=== PATIENT | female | born 1985 | race Caucasian/White ===

== ENCOUNTER 2018-03-09 21:42 | Emergency (ER) | payer MEDICAID ==
[~2018-03-09] VITALS: Ht 144.8 cm; Wt 78.0 kg
[2018-03-09] MEDS ORDERED: KETOROLAC 60MG/2ML VIAL IM STA (22:39)
[2018-03-09 23:02] LABS: CLARITY URINE CLEAR (CLEAR); COLOR URINE YELLOW (YELLOW); KETONES URINE NEGATIVE (NEGATIVE); LEUKOCYTE ESTERASE URINE NEGATIVE (NEGATIVE); NITRITE URINE NEGATIVE (NEGATIVE); OCCULT BLOOD URINE NEGATIVE (NEGATIVE); PH URINE 7.5 (4.5-8.0); PROTEIN URINE NEGATIVE (NEGATIVE); SPECIFIC GRAVITY URINE 1.006 (1.005-1.030); UROBILINOGEN URINE 0.2 E.U./dL (0.2-1.0)
[2018-03-09 23:29] LABS: BASOPHILS % 0.7 % (0.0-2.0); EOSINOPHILS % 1.5 % (0.0-5.0); HEMATOCRIT. 40.9 % (36.0-48.0); HEMOGLOBIN. 14.4 g/dL (12.0-16.0); LYMPHOCYTES % 36.1 % (20.0-50.0); MEAN CORPUSCULAR HEMOGLOBIN 32.1 pg (28.0-32.0); MEAN CORPUSCULAR VOLUME 90.9 fL (81.0-99.0); MEAN PLATELET VOLUME 8.7 fl (7.4-10.4); MONOCYTES % 7.4 % (2.0-8.0); NEUTROPHILS % 54.3 % (40.0-76.0); PLATELET 234 x1000/uL (130-400); RED CELL DISTRIBUTION WIDTH 13.3 % (11.6-14.6)
[2018-03-09 23:34] LABS: CHLORIDE 105 mEq/L (98-107)
[2018-03-10 01:09] VITALS: BP 112/77
== END 2018-03-10 01:26 | disposition home or self-care (01) ==
LOC: ER 21:42
DX: R51 Headache (principal); R42 Dizziness and giddiness; R11.0 Nausea
CPT/HCPCS: 36415; 80053; 81003; 81025; 85025; 96372; 99284; J1885; Z7610

== ENCOUNTER 2019-02-20 09:22 | Emergency (ER) | payer MEDICAID ==
[~2019-02-20] VITALS: Ht 154.9 cm; Wt 82.0 kg
[2019-02-20] MEDS ORDERED: ONDANSETRON HCL 4MG/2ML INJ IV STA (10:25)
[2019-02-20] MEDS ORDERED: MORPHINE SULFATE 4 MG/ML CPJ (NOT FOR IM USE) IV STA (10:25)
[2019-02-20] MEDS ORDERED: SODIUM CHLORIDE 0.9% 1,000 ML IV ONE (10:25)
[2019-02-20 10:47] LABS: CLARITY URINE CLOUDY (CLEAR); COLOR URINE YELLOW (YELLOW); KETONES URINE NEGATIVE (NEGATIVE); LEUKOCYTE ESTERASE URINE 2+ (NEGATIVE); NITRITE URINE NEGATIVE (NEGATIVE); OCCULT BLOOD URINE NEGATIVE (NEGATIVE); PROTEIN URINE NEGATIVE (NEGATIVE); SPECIFIC GRAVITY URINE 1.019 (1.005-1.030); UROBILINOGEN URINE 0.2 E.U./dL (0.2-1.0)
[2019-02-20 10:47] LABS: BASOPHILS % 1.8 % (0.0-2.0); EOSINOPHILS % 2.2 % (0.0-5.0); HEMATOCRIT. 38.2 % (36.0-48.0); HEMOGLOBIN. 13.2 g/dL (12.0-16.0); LYMPHOCYTES % 36.6 % (20.0-50.0); MEAN CORPUSCULAR VOLUME 89.9 fL (81.0-99.0); MEAN PLATELET VOLUME 8.7 fl (7.4-10.4); MONOCYTES % 7.7 % (2.0-8.0); NEUTROPHILS % 51.7 % (40.0-76.0); PLATELET 201 x1000/uL (130-400); RED BLOOD CELL COUNT 4.25 mill/uL (4.2-5.4); RED CELL DISTRIBUTION WIDTH 12.8 % (11.6-14.6)
[2019-02-20 10:54] LABS: CHLORIDE 107 mEq/L (98-107); PROTHROMBIN TIME 10.3 sec (9.6-11.0)
[2019-02-20 10:55] LABS: HCG SCREEN NEGATIVE
[2019-02-20] MEDS ORDERED: MORPHINE SULFATE 2 MG/ML CPJ (NOT FOR IM USE) IV ONE (11:00)
[2019-02-20] MEDS ORDERED: MORPHINE SULFATE 4 MG/ML CPJ (NOT FOR IM USE) IV NR (11:15)
[2019-02-20] MEDS ORDERED: CEFTRIAXONE 1 G PREMIX 50 ML IV NR (11:45)
[2019-02-20 13:13] VITALS: BP 100/62
== END 2019-02-20 13:20 | disposition home or self-care (01) ==
LOC: ER 09:22
DX: N12 Tubulo-interstitial nephritis, not specified as acute or chronic (principal); F32.9 Major depressive disorder, single episode, unspecified; Z98.890 Other specified postprocedural states
CPT/HCPCS: 36415; 74176; 80053; 81003; 83690; 84703; 85025; 85610; 96361; 96365; 96375; 99284; J0696; J2270; J2405; J7030; Z7610

== ENCOUNTER 2019-10-01 00:40 | Emergency (ER) | payer MEDICAID ==
[~2019-10-01] VITALS: Ht 152.4 cm; Wt 82.0 kg
[2019-10-01 00:48] VITALS: BP 119/81
[2019-10-01 04:47] LABS: CLARITY URINE CLEAR (CLEAR); COLOR URINE YELLOW (YELLOW); KETONES URINE TRACE (NEGATIVE); LEUKOCYTE ESTERASE URINE NEGATIVE (NEGATIVE); NITRITE URINE NEGATIVE (NEGATIVE); OCCULT BLOOD URINE NEGATIVE (NEGATIVE); PROTEIN URINE NEGATIVE (NEGATIVE); UROBILINOGEN URINE 0.2 E.U./dL (0.2-1.0)
== END 2019-10-01 05:10 | disposition home or self-care (01) ==
LOC: ER 00:40
DX: N39.0 Urinary tract infection, site not specified (principal); Z88.9 Allergy status to unspecified drugs, medicaments and biological substances; R30.0 Dysuria; Z98.890 Other specified postprocedural states
CPT/HCPCS: 81003; 81025; 99283